=== PATIENT | male | born 1975 | race African-American/Black ===

== ENCOUNTER 2019-03-23 12:12 | Emergency (ER) | payer MEDICAID, OTHER ==
[2019-03-23 13:27] LABS: ABS Lymphocytes 0.7 10^3/ul (1.0-4.8); ABS Monocytes 0.4 10^3/ul (0-0.8); ABS Neutrophils 1.4 10^3/ul (1.5-7.7); Eosinophil % 0.1 %; Hematocrit 39 % (42-52); Hemoglobin 13.7 g/dL (14.0-18.0); Lymphocyte % 27.8 %; Mean Corpuscular HGB Conc 36 g/dL (31-36); Mean Corpuscular Hemoglobin 36 pg (27-31); Mean Corpuscular Volume 102 fL (80-94); Mean Platelet Volume 6.5 fL (7.4-10.4); Nucleated Red Blood Cells % 0.1; Platelet Count 270 10^3/uL (150-450); Red Blood Count 3.76 10^6 /uL (4.18-5.48); Red Cell Distribution Width 13 % (10-15); White Blood Count 2.6 10^3/uL (3.5-10.8)
[2019-03-23 13:43] LABS: Albumin 4.6 g/dL (3.2-5.2); Albumin/Globulin Ratio 1.9 (1-3); BUN/Creatinine Ratio 14.8 (8-20); EGFR African American 114.4 (>60); EGFR Non-African American 94.5 (>60); Globulin 2.4 g/dL (2-4); Magnesium 1.9 mg/dL (1.9-2.7); Potassium 4.1 mmol/L (3.5-5.0); Total Bilirubin 0.9 mg/dL (0.2-1.0)
--- NOTE | 2019-03-23 14:10 | ED ---
Abdominal Pain/Male - HPI Summary HPI Summary: This patient is a 44 year old male presenting to [facility] with a chief complaint of diffuse abdominal pain. He reports nausea, vomiting, and diarrhea. He states he smoked marijuana with a friend he just met and thinks there may have been something wrong with it. He states his vomit and diarrhea are the same color, a fluorescent green. He states Hx of alcoholism and has been able to drink over the last 24 hours. He denies dysuria. He states he has never had surgery on his abdomen. Medications reviewed, allergies noted. - History of Current Complaint Chief Complaint: EDAbdPain Stated Complaint: GENERAL ILLNESS PER EMS Time Seen by Provider: 03/23/19 14:04 Hx Obtained From: Patient Onset/Duration: Lasting Days Pain Intensity: 10 Pain Scale Used: 0-10 Numeric - Allergies/Home Medications Allergies/Adverse Reactions: Allergies Allergy/AdvReac Type Severity Reaction Status Date / Time No Known Allergies Allergy Verified 03/23/19 12:24 PMH/Surg Hx/FS Hx/Imm Hx EENT History: Denies: Hx Deafness Psychiatric History: Reports: Hx Substance Abuse Infectious Disease History: No Infectious Disease History: Denies: Traveled Outside the [place] in Last 30 Days - Family History Known Family History: Negative: Seizure Disorder - Social History Lives: Alone Alcohol Use: Daily Substance Use Type: Reports: Marijuana Review of Systems Negative: Fever Positive: Abdominal Pain, Nausea Negative: dysuria All Other Systems Reviewed And Are Negative: Yes Physical Exam - Summary Physical Exam Summary: Constitutional: Well-developed, Well-nourished, Alert. (-) Distressed Skin: Warm, Dry HENT: Normocephalic; Atraumatic Eyes: Conjunctiva normal Neck: Musculoskeletal ROM normal neck. (-) JVD, (-) Stridor, (-) Tracheal deviation Cardio: Rhythm regular, rate normal, Heart sounds normal; Intact distal pulses; Radial pulses are 2+ and symmetric. (-) Murmur Pulmonary/Chest wall: Effort normal. (-) Respiratory distress, (-) Wheezes, (-) Rales Abd: Soft, diffuse tenderness worse in the upper abdomen, (-) Distension, (-) Guarding, (-) Rebound Musculoskeletal: (-) Edema Lymph: (-) Cervical adenopathy Neuro: Alert, Oriented x3 Psych: Mood and affect Normal Triage Information Reviewed: Yes Vital Signs On Initial Exam: Initial Vitals Temp Pulse Resp BP Pulse Ox 99.0 F 83 20 127/83 98 03/23/19 12:15 03/23/19 12:15 03/23/19 12:15 03/23/19 12:15 03/23/19 12:15 Vital Signs Reviewed: Yes Procedures - Sedation Patient Received Moderate/Deep Sedation with Procedure: No Diagnostics - Vital Signs Vital Signs Temp Pulse Resp BP Pulse Ox 03/23/19 12:15 99.0 F 83 20 127/83 98 - Laboratory Lab Results: Lab Results 03/23/19 03/23/19 Range/Units 13:13 13:13 WBC 2.6 L (3.5-10.8) 10^3/uL RBC 3.76 L (4.18-5.48) 10^6 /uL Hgb 13.7 L (14.0-18.0) g/dL Hct 39 L (42-52) % MCV 102 H (80-94) fL MCH 36 H (27-31) pg MCHC 36 (31-36) g/dL RDW 13 (10-15) % Plt Count 270 (150-450) 10^3/uL MPV 6.5 L (7.4-10.4) fL Neut % (Auto) 55.0 % Lymph % (Auto) 27.8 % Bureau % (Auto) 16.4 % Eos % (Auto) 0.1 % Baso % (Auto) 0.7 % Absolute Neuts (auto) 1.4 L (1.5-7.7) 10^3/ul Absolute Lymphs (auto) 0.7 L (1.0-4.8) 10^3/ul Absolute Monos (auto) 0.4 (0-0.8) 10^3/ul Absolute Eos (auto) 0.0 (0-0.6) 10^3/ul Absolute Basos (auto) 0.0 (0-0.2) 10^3/ul Absolute Nucleated RBC 0.0 10^3/ul Nucleated RBC % 0.1 Sodium 138 (135-145) mmol/L Potassium 4.1 (3.5-5.0) mmol/L Chloride 102 (101-111) mmol/L Carbon Dioxide 29 (22-32) mmol/L Anion Gap 7 (2-11) mmol/L BUN 13 (6-24) mg/dL Creatinine 0.88 (0.67-1.17) mg/dL Est GFR ( Amer) 114.4 (>60) Est GFR (Non-Af Amer) 94.5 (>60) BUN/Creatinine Ratio 14.8 (8-20) Glucose 107 H (70-100) mg/dL Calcium 9.0 (8.6-10.3) mg/dL Magnesium 1.9 (1.9-2.7) mg/dL Total Bilirubin 0.90 (0.2-1.0) mg/dL AST 129 H (13-39) U/L ALT 113 H (7-52) U/L Alkaline Phosphatase 70 (34-104) U/L Total Protein 7.0 (6.4-8.9) g/dL Albumin 4.6 (3.2-5.2) g/dL Globulin 2.4 (2-4) g/dL Albumin/Globulin Ratio 1.9 (1-3) Lipase 16 (11.0-82.0) U/L Serum Alcohol 82 H (<10) mg/dL Result Diagrams: 03/23/19 13:13 03/23/19 13:13 Lab Statement: Any lab studies that have been ordered have been reviewed, and results considered in the medical decision making process. - CT Abd/Pel CT Interpretation Completed By: Radiologist Summary of CT Findings: Hepatomegaly with fatty infiltration of the liver. Normal appendix. ED Provider has reviewed this report. Re-Evaluation - Re-Evaluation First Eval Re-Evaluation Time: 15:23 Comment: States he feels better, will PO challenge. Second Eval Re-Evaluation Time: 15:55 Comment: Patient tolerated PO Abdominal Pain Male Course/Dx - Course Course Of Treatment: Patient's urine vomiting, diarrhea, and diffuse abdominal pain. Patient states he went symptoms for 24 hours . However, patient did state he went to court when a couple days ago for similar symptoms and had a negative ultrasound and was discharged. Patient is overall well-appearing but does have diffuse tenderness. Patient had blood performed which is grossly unremarkable outside elevated LFTs. Patient does drink chronically and this is likely related to that. Patient CT scan which showed no evidence of any acute process. Patient was given Zofran, morphine, and Bentyl with improvement in symptoms. Patient is discharged with Zofran and Bentyl. - Diagnoses Provider Diagnoses: Vomiting, Diarrhea, RLQ abdominal pain Discharge ED - Sign-Out/Discharge Documenting (check all that apply): Patient Departure - Discharge - Discharge Plan Condition: Stable Disposition: HOME Prescriptions: Dicyclomine CAP* [Bentyl CAP*] 10 mg PO TID PRN #20 cap PRN Reason: abdominal cramping Ondansetron ODT TAB* [Zofran 4 MG Odt TAB*] 4 mg PO Q8H PRN #12 tab.odt PRN Reason: Vomiting Patient Education Materials: Abdominal Pain (ED) Referrals: No Primary Care Phys,NOPCP [Primary Care Provider] - Additional Instructions: Take your medicines as prescribed. Come back if you cannot tolerate fluids for 12 hours, do not urinate for 12 hours, or have any other concerning symptoms. - Billing Disposition and Condition Condition: STABLE Disposition: Home - Attestation Statements Document Initiated by Leida: Yes Documenting Scribe: Ambrocio Washington Provider For Whom Leida is Documenting (Include Credential): Isai Ponce MD Scribe Attestation: Ambrocio Beltran, scribed for Isai Ponce MD on 03/23/19 at 1634. Scribe Documentation Reviewed: Yes Provider Attestation: The documentation as recorded by the Ambrocio [email or web address] accurately reflects the service I personally performed and the decisions made by Isai harrington MD Status of Scribfrederic Document: Viewed
[2019-03-23] MEDS ORDERED: Ondansetron INJ* 2 MG/ML VIAL IV ONE (14:27)
[2019-03-23] MEDS ORDERED: NS 0.9% 1000 ML** 1,000 ML IV ONE (14:27)
[2019-03-23] MEDS ORDERED: Morphine 4 MG/ML VIAL (1 ml) 4 MG/ML VIAL IV ONE (14:27)
[2019-03-23] MEDS ORDERED: Iohexol 300* (CONTRAST) 10 ML SDV IV ONE (14:35)
[2019-03-23] MEDS ORDERED: Dicyclomine CAP* 10 MG PO ONE (15:16)
[2019-03-23 15:59] VITALS: BP 140/100
== END 2019-03-23 15:57 | disposition home or self-care (01) ==
LOC: ED 12:12
DX: R10.31 Right lower quadrant pain (principal); R11.10 Vomiting, unspecified; R19.7 Diarrhea, unspecified; K76.0 Fatty (change of) liver, not elsewhere classified
CPT/HCPCS: 36415; 74177; 80053; 80320; 83690; 83735; 85025; 96361; 96374; 96375; 99283; A9270-GY; G0480; J2270; J2405; Q9967

== ENCOUNTER 2019-05-04 00:18 | Emergency (ER) | payer OTHER ==
[2019-05-04] MEDS ORDERED: Pseudoephedrine HCL ER TAB* 120 MG PO ONE (01:05)
--- NOTE | 2019-05-04 01:05 | ED ---
Throat Pain/Nasal Congestion - HPI Summary HPI Summary: 44-year-old male presents with sinus congestion for the past 2 days. He admits to sinus pressure. He states he history of sinus infection. He hasn't taking anything for his symptoms. nose is draining. Denies any postnasal drip. He admits to a slight headache. No ear pain. No fevers. No chest pain or shortness of breath. No cough or sore throat. No abdominal pain. No nausea or vomiting. no medical conditions. - History of Current Complaint Chief Complaint: EDUpperRespComplaint Time Seen by Provider: 05/04/19 00:44 - Allergies/Home Medications Allergies/Adverse Reactions: Allergies Allergy/AdvReac Type Severity Reaction Status Date / Time No Known Allergies Allergy Verified 03/23/19 12:24 PMH/Surg Hx/FS Hx/Imm Hx Endocrine/Hematology History: Denies: Hx Anticoagulant Therapy Respiratory History: Denies: Hx Asthma Sensory History: Denies: Hx Deafness Psychiatric History: Reports: Hx Substance Abuse Infectious Disease History: No Infectious Disease History: Denies: Traveled Outside the [place] in Last 30 Days - Family History Known Family History: Negative: Seizure Disorder - Social History Alcohol Use: Daily Substance Use Type: Reports: Marijuana Smoking Status (MU): Never Smoked Tobacco Review of Systems Negative: Fever Positive: Nasal Discharge. Negative: Sore Throat Negative: Chest Pain Negative: Shortness Of Breath All Other Systems Reviewed And Are Negative: Yes Physical Exam Triage Information Reviewed: Yes Vital Signs On Initial Exam: Initial Vitals Temp Pulse Resp BP Pulse Ox 98.6 F 89 18 143/83 98 05/04/19 00:20 05/04/19 00:20 05/04/19 00:20 05/04/19 00:20 05/04/19 00:20 Vital Signs Reviewed: Yes Appearance: Positive: Well-Appearing Skin: Positive: Warm, Dry Head/Face: Positive: Normal Head/Face Inspection Eyes: Positive: Normal, EOMI, JOSIAH, Conjunctiva Clear ENT: Positive: Pharynx normal, Nasal congestion, TMs normal. Negative: Sinus tenderness Respiratory/Lung Sounds: Positive: Clear to Auscultation, Breath Sounds Present Cardiovascular: Positive: Normal, RRR Abdomen Description: Positive: Nontender, Soft Bowel Sounds: Positive: Present Musculoskeletal: Positive: Normal Neurological: Positive: Normal Psychiatric: Positive: Normal Procedures - Sedation Patient Received Moderate/Deep Sedation with Procedure: No Diagnostics - Vital Signs Vital Signs Temp Pulse Resp BP Pulse Ox 05/04/19 00:20 98.6 F 89 18 143/83 98 - Laboratory Lab Statement: Any lab studies that have been ordered have been reviewed, and results considered in the medical decision making process. EENT Course/Dx - Course Course Of Treatment: 44-year-old male presents with sinus congestion for the past 2 days. He admits to sinus pressure. He states he history of sinus infection. He hasn't taking anything for his symptoms. nose is draining. Denies any postnasal drip. He admits to a slight headache. No ear pain. No fevers. No chest pain or shortness of breath. No cough or sore throat. No abdominal pain. No nausea or vomiting. no medical conditions. On exam has congestion noted. Pharynx normal. Lungs clear to auscultation. No sinus tenderness noted. Discussed likely vrial at this time. We'll treat with Flonase and Sudafed. Told if symptoms persist for 5 more days starting antibiotics. Send a prescription for Augmentin. The patient understands and agrees the plan. - Differential Diagnoses Differential Diagnoses: Allergic Rhinitis, Sinusitis, URI/Bronchitis - Diagnoses Provider Diagnoses: Rhinosinusitis Discharge ED - Sign-Out/Discharge Documenting (check all that apply): Patient Departure - Discharge Plan Condition: Good Disposition: HOME Prescriptions: Amoxicillin/Clavulanate TAB* [Augmentin TAB 875*] 875 mg PO BID #14 tab Fluticasone NASAL SPRAY 50MCG* [Flonase NASAL SPRAY 50MCG*] 2 spray BOTH NARES DAILY #1 btl Pseudoephedrine HCL ER TAB* [Sudafed 12 Hour*] 120 mg PO BID #10 tab.er Patient Education Materials: Rhinosinusitis (ED) Referrals: No Primary Care Phys,NOPCP [Primary Care Provider] - Additional Instructions: Use saline spray in nose as much as needed take sudafed every 12 hours Use intranasal steroid one spray each nostril twice a day Take antibiotic in 5 days if no improvement, take twice a day for 7 days Take Tylenol or ibuprofen for headache every 6 hours Follow up with primary in 5 days Return to ED if develop any new or worsening symptoms - Billing Disposition and Condition Condition: GOOD Disposition: Home
[2019-05-04 01:40] VITALS: BP 119/74
== END 2019-05-04 01:39 | disposition home or self-care (01) ==
LOC: ED 00:18
DX: J32.9 Chronic sinusitis, unspecified (principal)
CPT/HCPCS: 99282; A9270-GY